=== PATIENT | male | born 1980 | race Caucasian/White ===

== ENCOUNTER → 2016-04-04 | Outpatient (CLI) | payer MEDICARE ==
[~2016-04-04] MED LIST: GENTAMICIN EYE D5 ML OD; NORCO 325 MG-51 TAB PO; PERCOCET 325 MG1 TA2 PO; SEROQUEL400 MG PO
== END ==
LOC: BHSO 12:45
DX: F20.89 Other schizophrenia (principal)

== ENCOUNTER → 2016-05-30 | Outpatient (CLI) | payer MEDICARE | LOC: BHSO 13:18 | DX: F20.9 Schizophrenia, unspecified (principal) ==

== ENCOUNTER → 2016-09-20 | Outpatient (CLI) | payer MEDICARE | LOC: BHSO 12:42 | DX: F20.9 Schizophrenia, unspecified (principal) ==

== ENCOUNTER → 2017-01-31 | Outpatient (CLI) | payer MEDICARE | LOC: BHSO 13:23 | DX: Z01.89 Encounter for other specified special examinations (principal) ==

== ENCOUNTER → 2017-03-07 | Outpatient (CLI) | payer MEDICARE | LOC: BHSO 12:43 | DX: F20.9 Schizophrenia, unspecified (principal) ==

== ENCOUNTER → 2017-04-20 | Outpatient (CLI) | payer MEDICARE | LOC: BHSO 13:53 | DX: F20.9 Schizophrenia, unspecified (principal) | CPT/HCPCS: G0463 ==

== ENCOUNTER 2017-05-09 18:16 | Emergency (ER) | payer MEDICARE ==
[~2017-05-09] VITALS: Ht 203.2 cm; Wt 104.1 kg
[2017-05-09 18:22] VITALS: BP 133/79; PULSE 67; TEMP 98.1
[2017-05-09] MEDS ORDERED: INDERAL 10MG10 MG PO (18:39)
[2017-05-09] MEDS ORDERED: RISPERDAL3 MG PO (18:39)
[2017-05-09] MEDS ORDERED: CIPRODEX OT (19:16)
== END 2017-05-09 19:22 | disposition home or self-care (01) ==
LOC: COL.ER 18:16
DX: T16.1XXA Foreign body in right ear, initial encounter (principal); F20.9 Schizophrenia, unspecified; Z88.0 Allergy status to penicillin; X58.XXXA Exposure to other specified factors, initial encounter

== ENCOUNTER → 2017-05-22 | Outpatient (CLI) | payer MEDICARE ==
[~2017-05-22] MED LIST changes: +CIPRODEX OT; +INDERAL 10MG10 MG PO; +RISPERDAL3 MG PO
== END ==
LOC: BHSO 13:40
DX: F20.9 Schizophrenia, unspecified (principal)
CPT/HCPCS: G0463

== ENCOUNTER → 2017-07-19 | Outpatient (CLI) | payer MEDICARE | LOC: BHSO 13:53 | DX: F20.9 Schizophrenia, unspecified (principal) | CPT/HCPCS: G0463 ==

== ENCOUNTER 2017-12-04 05:37 | Emergency (ER) | payer MEDICARE ==
[~2017-12-04] VITALS: Ht 203.2 cm; Wt 127.3 kg
[2017-12-04 05:41] VITALS: TEMP 97.4
[2017-12-04 07:52] VITALS: BP 126/79; PULSE 59
== END 2017-12-04 07:54 | disposition home or self-care (01) ==
LOC: COL.ER 05:37
DX: I10 Essential (primary) hypertension (principal); F41.9 Anxiety disorder, unspecified; F20.9 Schizophrenia, unspecified

== ENCOUNTER 2018-04-21 12:03 | Emergency (ER) | payer MEDICARE ==
[~2018-04-21] VITALS: Ht 193 cm; Wt 109.1 kg
[2018-04-21 12:13] VITALS: BP 131/77
[2018-04-21] MEDS ORDERED: TAMIFLU 75MG75 MG PO (12:21)
[2018-04-21] MEDS ORDERED: ADVIL200 MG PO (12:21)
[2018-04-21 13:35] LABS: COLLECTION METHOD CLEAN CATCH
[2018-04-21 13:53] LABS: AMORPHOUS CRYSTAL Present /uL; MUCOUS Present /lpf; PH 5 (5-8); SQUAMOUS EPITHELIAL 0-2 /hpf; URINE APPEARANCE Hazy; URINE BACTERIA None Seen /hpf; URINE BILIRUBIN Negative (NEGATIVE); URINE BLOOD Negative (NEGATIVE); URINE COLOR Amber; URINE GLUCOSE Negative (NEGATIVE); URINE KETONE Negative (NEGATIVE); URINE LEUKOCYTE ESTERASE Negative (NEGATIVE); URINE NITRATE Negative (NEGATIVE); URINE PROTEIN(semi-quant) 1+ (NEGATIVE); URINE RBC 0-2 /hpf
[2018-04-21 14:20] VITALS: PULSE 79; TEMP 99.8
== END 2018-04-21 14:24 | disposition home or self-care (01) ==
LOC: COL.ER 12:03
PROVIDERS: Physician Assistant
DX: R50.9 Fever, unspecified (principal); F20.9 Schizophrenia, unspecified; Z88.0 Allergy status to penicillin

== ENCOUNTER 2018-11-23 14:58 | Emergency (ER) | payer MEDICARE ==
[~2018-11-23] VITALS: Ht 203.2 cm; Wt 117.7 kg
[~2018-11-23 14:58] MED LIST changes: +ADVIL200 MG PO; +TAMIFLU 75MG75 MG PO
[2018-11-23 15:02] VITALS: TEMP 100.2
[2018-11-23] MEDS ORDERED: LEVAQUIN 5500 MG/TA1 PO (17:25)
[2018-11-23 17:48] VITALS: BP 152/79; PULSE 114
== END 2018-11-23 17:44 | disposition home or self-care (01) ==
LOC: COL.ER 14:58
DX: J18.1 Lobar pneumonia, unspecified organism (principal); J20.9 Acute bronchitis, unspecified
CPT/HCPCS: J7512

== ENCOUNTER 2021-03-29 15:10 | Emergency (ER) | payer MEDICARE ==
[~2021-03-29] VITALS: Ht 198.1 cm; Wt 127.3 kg
[~2021-03-29 15:10] MED LIST changes: +LEVAQUIN 5500 MG/TA1 PO
[2021-03-29 16:18] VITALS: BP 135/78; PULSE 74; TEMP 98
[2021-03-29] MEDS ORDERED: CIPRODEX OT (17:28)
== END 2021-03-29 17:33 | disposition home or self-care (01) ==
LOC: COL.ER 15:10
DX: H60.92 Unspecified otitis externa, left ear (principal)